=== PATIENT | female | born 1985 | race Caucasian/White ===

== ENCOUNTER → 2021-03-07 11:16 | Outpatient (BNVA) | payer MEDICAID, SELFPAY | PROVIDERS: Visit Provider Nurse Practitioner Family | DX: M21.612 Bunion of left foot (principal); L60.2 Onychogryphosis; L03.032 Cellulitis of left toe; G89.29 Other chronic pain | CPT/HCPCS: 73030; 73130 ==

== ENCOUNTER 2021-05-16 09:28 | Emergency (ER) | payer MEDICAID, SELFPAY ==
--- NOTE | 2021-05-16 09:58 | ED_ITS ---
Documented by User: BOB Gee 05/16/21 13:09 HPI - Nausea/Vomiting/Diarrhea General: Chief complaint: Nausea/Vomiting/Diarrhea Stated complaint: abdominal pain, n/v/d Time Seen by Provider: 05/16/21 09:33 Source: patient Mode of arrival: ambulatory Limitations: no limitations History of Present Illness: Patient is a 36-year-old female who presents to ED today along with her sister who is also being seen for identical symptoms. They are both being seen for nausea, vomiting, diarrhea, abdominal cramping. They state several members of their household have recently been ill with similar symptoms. She states illness lasted anywhere from 2 to 7 days. No fevers. She is not having any urinary complaints. No dizziness, lightheadedness, muscle fatigue/weakness/cramps. Patient does have a history of hepatitis C that she is currently receiving treatment for. Patient denies hematemesis, hematochezia or melena. MD elicited complaint: nausea, vomiting, diarrhea and abdominal pain Onset (ago): day(s) Description of diarrhea: watery Associated nausea: Yes Associated abdominal pain: Yes Location of pain: Diffuse Pain consistency: intermittent Severity: mild Quality: cramping Associated symtoms: Reports nausea; Denies chest pain, dizziness, dysuria, fatigue, fecal incontinence, headache(s) or malaise Review of Systems Const: Denies: fever(s), chills, body aches, fatigue or malaise Card: Denies: chest pain Resp: Denies: dyspnea GI: Reports: abdominal pain, nausea, vomiting, diarrhea and GI cramping; Denies: hematemesis, coffee ground emesis, fecal incontinence, hematochezia, melena or mucus in stool : Denies: flank pain, dysuria, hematuria or pelvic pain Musc: Denies: neck pain, back pain, extremity pain or joint pain Skin/Breast: Denies: rash Neuro: Denies: headache(s) or dizziness PFS ED PFSH: Social History Smoking and tobacco status: current every day smoker (1/2 ppd) cigarettes Packs smoked per day: 0.5 Physical Exam Const: COMMON NORMALS: no acute distress, average body habitus, patient oriented x3, no limitations, healthy appearing, alert and well nourished GENE [facility] APPEARANCE: cooperative ORIENTATION/CONSCIOUSNESS: Yes awake, Yes oriented to person, Yes oriented to place and Yes oriented to time Resp: COMMON NORMALS: normal respiratory effort and clear to auscultation bilaterally AUSCULTATION: clear to auscultation bilaterally Cardio: COMMON NORMALS: regular rate and regular rhythm RATE: regular rate RHYTHM: regular rhythm GI: COMMON NORMALS: Normal to inspection, nondistended, normoactive bowel sounds present, Soft to palpation, non-tender, No hepatosplenomegaly present and no masses AUSCULTATION: Yes normoactive bowel sounds PALPATION: Yes Soft to palpation and Yes No hepatosplenomegaly present : COMMON NORMALS: Yes no CVA tenderness BLADDER/KIDNEY EXAM: Yes no CVA tenderness Back/Pelvis: COMMON NORMALS: no CVA tenderness Extremity: COMMON NORMALS: normal to inspection GENERAL: Yes normal exam except as noted Neuro: GÉNESIS COMA SCALE: document GCS findings [place] coma scale eye opening: Spontaneous [place] coma scale verbal response: Orientated Génesis coma scale motor response: Obey commands Génesis coma scale total score: 15 COMMON NORMALS: patient oriented x3, moves all extremities, no focal motor deficits, no sensory deficits noted and gait normal SENSORIUM/ORIENTATION: Yes alert, Yes oriented to person, Yes oriented to place and Yes oriented to time Skin: COMMON NORMALS: no rashes or lesions noted GENERAL SKIN EXAM: no rashes or lesions noted Course Vital Signs: Vital signs: Vital Signs Temperature 97.8 F 05/16/21 10:54 Pulse Rate 64 05/16/21 10:54 Respiratory Rate 16 05/16/21 10:54 Blood Pressure 106/72 05/16/21 10:54 Pulse Oximetry 100 05/16/21 10:54 MDM - Nausea/Vomiting/Diarrhea Medical Decision Making Patient is a 36-year-old female here for complaints of nausea, vomiting, diarrhea, and intermittent abdominal cramping. Her sister has been seen here for identical symptoms. They state their entire household has been sick with a GI bug . Patient actually states she has felt much better over the past 48 hours. Her vital signs are stable. Clinically she appears in no acute distress. Blood work reveals leukopenia with a WBC count of 2.5 neutropenia count of 0.55. Patient seems to think she has had these abnormal lab values previously. I did contact her primary care provider and [facility] who stated on her most recent blood work in February her values were normal. They faxed over CBC results and I confirmed this. Patient was recently started on hepatitis C medication. PCP does not feel this would be a side effect of the medication. He recommended she continue taking this. He stated he will repeat labs in a few weeks and if they continue to be low will refer to hematology. Patient is afebrile. Strict return to ED precautions given which she verbalizes understanding of. Lab Data : 05/16/21 10:15 05/16/21 10:15 Laboratory Results WBC 2.5 10^3/uL (4.0-10.0) L 05/16/21 10:15 RBC 4.84 10^6/uL (4.1-5.3) 05/16/21 10:15 Hgb 15.1 g/dL (11.5-15.3) 05/16/21 10:15 Hct 44.5 % (37.0-47.0) 05/16/21 10:15 MCV 91.9 fl (81-99) 05/16/21 10:15 MCH 31.2 pg (28.0-34.0) 05/16/21 10:15 MCHC 33.9 g/dL (30.0-36.0) 05/16/21 10:15 RDW 11.7 % (12.1-15.1) L 05/16/21 10:15 Plt Count 194 10^3/cmm (130-400) 05/16/21 10:15 MPV 10.0 fL (7.4-10.4) 05/16/21 10:15 Neut % (Auto) 22.5 % 05/16/21 10:15 Lymph % (Auto) 62.4 % 05/16/21 10:15 [place] % (Auto) 13.1 % 05/16/21 10:15 Eos % (Auto) 1.2 % 05/16/21 10:15 Baso % (Auto) 0.4 % 05/16/21 10:15 Neut # (Auto) 0.55 10^3/uL (1.8-7.7) L* 05/16/21 10:15 Lymph # (Auto) 1.5 10^3/uL (0.8-4.8) 05/16/21 10:15 [place] # (Auto) 0.3 10^3/uL (0.2-0.9) 05/16/21 10:15 Eos # (Auto) 0.0 10^3/uL (0.0-0.8) 05/16/21 10:15 Baso # (Auto) 0.0 10^3/uL (0.0-0.1) 05/16/21 10:15 Nucleated RBC % (auto) 0 % 05/16/21 10:15 Nucleated RBCs # 0.0 /100WBC 05/16/21 10:15 Sodium 135 mmol/L (136-145) L 05/16/21 10:15 Potassium 3.5 mmol/L (3.5-5.1) 05/16/21 10:15 Chloride 100 mmol/L (98-107) 05/16/21 10:15 Carbon Dioxide 26 mmol/L (22-29) 05/16/21 10:15 Anion Gap 12.5 (5-19) 05/16/21 10:15 BUN 7 mg/dL (6-20) 05/16/21 10:15 Creatinine 0.6 mg/dL (0.5-0.9) 05/16/21 10:15 GFR Calculation 113.1 mL/min (90-130) 05/16/21 10:15 Glucose 77 mg/dL (65-115) 05/16/21 10:15 Calculated Osmolality 277 mOsm/kg (285-295) L 05/16/21 10:15 Calcium 9.0 mg/dL (8.5-10.5) 05/16/21 10:15 Total Bilirubin 0.5 mg/dL (0.15-1.2) 05/16/21 10:15 AST 47 U/L (0-32) H 05/16/21 10:15 ALT 61 U/L (0-33) H 05/16/21 10:15 Alkaline Phosphatase 86 IU/L (35-105) 05/16/21 10:15 Total Protein 6.6 g/dL (6.6-8.7) 05/16/21 10:15 Albumin 4.1 g/dL (3.5-5.2) 05/16/21 10:15 Globulin 2.5 g/dL (1.3-4.6) 05/16/21 10:15 Lipase 27 U/L (13-60) 05/16/21 10:15 HCG, Qual Negative (Negative) 05/16/21 10:15 Urine Color Yellow (Yellow) 05/16/21 10:30 Urine Appearance Clear (CLEAR) 05/16/21 10:30 Urine pH 5 (5-7) 05/16/21 10:30 Ur Specific [place] 1.010 (1.005-1.030) 05/16/21 10:30 Urine Protein Neg (Negative) 05/16/21 10:30 Urine Glucose (UA) Norm (Normal) 05/16/21 10:30 Urine Ketones Negative (Negative) 05/16/21 10:30 Urine Blood Neg (Negative) 05/16/21 10:30 Urine Nitrate Negative (Negative) 05/16/21 10:30 Urine Bilirubin Neg (Negative) 05/16/21 10:30 Urine Urobilinogen Neg mg/dL (Negative) 05/16/21 10:30 Ur Leukocyte Esterase Negative (Negative) 05/16/21 10:30 Discharge Plan Discharge Patient Disposition: Home Clinical Impression: Viral gastroenteritis Neutropenia Qualifiers: Neutropenia type: unspecified Qualified Code(s): D70.9 - Neutropenia, unspecified Condition: Stable Prescriptions: No Action methotrexate sodium 2.5 mg tablet 2.5 mg PO DAILY 0RF cephalexin 500 mg capsule 500 mg PO TID 10 Days Qty: 30 0RF Discharge Orders: Discharge ED (Routine); Ordered 05/16/21 Ordered By: Chloe Lr Activity Restrictions/Additional Instructions: As we discussed I spoke to your primary care provider. He will repeat labs in a few weeks. If your white cell count/neutrophil count remains low he will most likely refer you to hematology for further evaluation. He stated you can still continue your current hep C regimen. Coding Level of Care Code ED [place] for Chg Fwd Exam Comprehensive Documented by User: Jean Sun DO 05/16/21 13:47 HPI - Nausea/Vomiting/Diarrhea General: Chief complaint: Nausea/Vomiting/Diarrhea Stated complaint: abdominal pain, n/v/d Time Seen by Provider: 05/16/21 09:33 PFSH ED PFSH: Social History Smoking and tobacco status: current every day smoker (1/2 ppd) cigarettes Packs smoked per day: 0.5 Physical Exam Neuro: GÉNESIS COMA SCALE: document GCS findings Génesis coma scale total score: 15 Course Vital Signs: Vital signs: Vital Signs Temperature 97.8 F 05/16/21 10:54 Pulse Rate 64 05/16/21 10:54 Respiratory Rate 16 05/16/21 10:54 Blood Pressure 106/72 05/16/21 10:54 Pulse Oximetry 100 05/16/21 10:54 MDM - Nausea/Vomiting/Diarrhea Medical Decision Making Patient is a 36-year-old female here for complaints of nausea, vomiting, diarrhea, and intermittent abdominal cramping. Her sister has been seen here for identical symptoms. They state their entire household has been sick with a GI bug . Patient actually states she has felt much better over the past 48 hours. Her vital signs are stable. Clinically she appears in no acute distress. Blood work reveals leukopenia with a WBC count of 2.5 neutropenia count of 0.55. Patient seems to think she has had these abnormal lab values previously. I did contact her primary care provider and [facility] who stated on her most recent blood work in February her values were normal. They faxed over CBC results and I confirmed this. Patient was recently started on hepatitis C medication. PCP does not feel this would be a side effect of the medication. He recommended she continue taking this. He stated he will repeat labs in a few weeks and if they continue to be low will refer to hematology. Patient is afebrile. Strict return to ED precautions given which she verbalizes understanding of. Chart reviewed and patient discussed with midlevel. Agree with assessment and plan. Lab Data : 05/16/21 10:15 05/16/21 10:15 Laboratory Results WBC 2.5 10^3/uL (4.0-10.0) L 05/16/21 10:15 RBC 4.84 10^6/uL (4.1-5.3) 05/16/21 10:15 Hgb 15.1 g/dL (11.5-15.3) 05/16/21 10:15 Hct 44.5 % (37.0-47.0) 05/16/21 10:15 MCV 91.9 fl (81-99) 05/16/21 10:15 MCH 31.2 pg (28.0-34.0) 05/16/21 10:15 MCHC 33.9 g/dL (30.0-36.0) 05/16/21 10:15 RDW 11.7 % (12.1-15.1) L 05/16/21 10:15 Plt Count 194 10^3/cmm (130-400) 05/16/21 10:15 MPV 10.0 fL (7.4-10.4) 05/16/21 10:15 Neut % (Auto) 22.5 % 05/16/21 10:15 Lymph % (Auto) 62.4 % 05/16/21 10:15 [place] % (Auto) 13.1 % 05/16/21 10:15 Eos % (Auto) 1.2 % 05/16/21 10:15 Baso % (Auto) 0.4 % 05/16/21 10:15 Neut # (Auto) 0.55 10^3/uL (1.8-7.7) L* 05/16/21 10:15 Lymph # (Auto) 1.5 10^3/uL (0.8-4.8) 05/16/21 10:15 [place] # (Auto) 0.3 10^3/uL (0.2-0.9) 05/16/21 10:15 Eos # (Auto) 0.0 10^3/uL (0.0-0.8) 05/16/21 10:15 Baso # (Auto) 0.0 10^3/uL (0.0-0.1) 05/16/21 10:15 Nucleated RBC % (auto) 0 % 05/16/21 10:15 Nucleated RBCs # 0.0 /100WBC 05/16/21 10:15 Sodium 135 mmol/L (136-145) L 05/16/21 10:15 Potassium 3.5 mmol/L (3.5-5.1) 05/16/21 10:15 Chloride 100 mmol/L (98-107) 05/16/21 10:15 Carbon Dioxide 26 mmol/L (22-29) 05/16/21 10:15 Anion Gap 12.5 (5-19) 05/16/21 10:15 BUN 7 mg/dL (6-20) 05/16/21 10:15 Creatinine 0.6 mg/dL (0.5-0.9) 05/16/21 10:15 GFR Calculation 113.1 mL/min (90-130) 05/16/21 10:15 Glucose 77 mg/dL (65-115) 05/16/21 10:15 Calculated Osmolality 277 mOsm/kg (285-295) L 05/16/21 10:15 Calcium 9.0 mg/dL (8.5-10.5) 05/16/21 10:15 Total Bilirubin 0.5 mg/dL (0.15-1.2) 05/16/21 10:15 AST 47 U/L (0-32) H 05/16/21 10:15 ALT 61 U/L (0-33) H 05/16/21 10:15 Alkaline Phosphatase 86 IU/L (35-105) 05/16/21 10:15 Total Protein 6.6 g/dL (6.6-8.7) 05/16/21 10:15 Albumin 4.1 g/dL (3.5-5.2) 05/16/21 10:15 Globulin 2.5 g/dL (1.3-4.6) 05/16/21 10:15 Lipase 27 U/L (13-60) 05/16/21 10:15 HCG, Qual Negative (Negative) 05/16/21 10:15 Urine Color Yellow (Yellow) 05/16/21 10:30 Urine Appearance Clear (CLEAR) 05/16/21 10:30 Urine pH 5 (5-7) 05/16/21 10:30 Ur Specific [place] 1.010 (1.005-1.030) 05/16/21 10:30 Urine Protein Neg (Negative) 05/16/21 10:30 Urine Glucose (UA) Norm (Normal) 05/16/21 10:30 Urine Ketones Negative (Negative) 05/16/21 10:30 Urine Blood Neg (Negative) 05/16/21 10:30 Urine Nitrate Negative (Negative) 05/16/21 10:30 Urine Bilirubin Neg (Negative) 05/16/21 10:30 Urine Urobilinogen Neg mg/dL (Negative) 05/16/21 10:30 Ur Leukocyte Esterase Negative (Negative) 05/16/21 10:30 Discharge Plan Discharge Patient Disposition: Home Clinical Impression: Viral gastroenteritis Neutropenia Qualifiers: Neutropenia type: unspecified Qualified Code(s): D70.9 - Neutropenia, unspecified Condition: Stable Prescriptions: No Action methotrexate sodium 2.5 mg tablet 2.5 mg PO DAILY 0RF cephalexin 500 mg capsule 500 mg PO TID 10 Days Qty: 30 0RF Discharge Orders: Discharge ED (Routine); Ordered 05/16/21 Ordered By: Chloe Lr Activity Restrictions/Additional Instructions: As we discussed I spoke to your primary care provider. He will repeat labs in a few weeks. If your white cell count/neutrophil count remains low he will most likely refer you to hematology for further evaluation. He stated you can still continue your current hep C regimen. Coding Level of Care Code ED [place] for [place] Fwd Exam Comprehensive
[2021-05-16 10:33] LABS: Basophils % 0.4 %; Eosinophils % 1.2 %; Hematocrit 44.5 % (37.0-47.0); Hemoglobin 15.1 g/dL (11.5-15.3); Lymphocytes # 1.5 10^3/uL (0.8-4.8); Lymphocytes % 62.4 %; Mean Corpuscular HGB Conc 33.9 g/dL (30.0-36.0); Mean Corpuscular Hemoglobin 31.2 pg (28.0-34.0); Mean Corpuscular Volume 91.9 fl (81-99); Monocytes # 0.3 10^3/uL (0.2-0.9); Monocytes % 13.1 %; Neutrophils % 22.5 %; Nucleated Red Blood Cells % 0 %; Platelet Count 194 10^3/cmm (130-400); Red Blood Count 4.84 10^6/uL (4.1-5.3); Red Cell Distribution Width 11.7 % (12.1-15.1); White Blood Count 2.5 10^3/uL (4.0-10.0)
[2021-05-16 10:39] LABS: Add Urine Microscopic? NO; Charge for UA Resulting for Rev
[2021-05-16 10:40] LABS: Neutrophils # 0.55 10^3/uL (1.8-7.7)
[2021-05-16 10:44] LABS: Bilirubin Urine Neg (Negative); Blood Urine Neg (Negative); Glucose Urine UA Norm (Normal); Ketones Urine Negative (Negative); Leukocyte Esterase Urine Negative (Negative); Nitrate Urine Negative (Negative); Protein Urine Neg (Negative); Urine Appearance Clear (CLEAR); Urine Color Yellow (Yellow); Urobilinogen Urine Neg (Negative); pH Urine 5 (5-7)
[2021-05-16 10:52] LABS: HCG, Serum Qual Negative (Negative)
[2021-05-16 10:54] VITALS: BP 106/72; PULSE 64; RESP 16; TEMP 36.6; O2SAT 100
[2021-05-16 11:06] LABS: Alanine Aminotransferase 61 U/L (0-33); Albumin Level 4.1 g/dL (3.5-5.2); Alkaline Phosphatase 86 IU/L (35-105); Anion Gap 12.5 (5-19); Aspartate Amino Transferase 47 U/L (0-32); Blood Urea Nitrogen 7 mg/dL (6-20); Carbon Dioxide 26 mmol/L (22-29); Chloride 100 mmol/L (98-107); Globulin 2.5 g/dL (1.3-4.6); Glomerular Filtration Rate 113.1 mL/min (90-130); Glucose 77 mg/dL (65-115); Lipase 27 U/L (13-60); Osmolality Calculated 277 mOsm/kg (285-295); Potassium 3.5 mmol/L (3.5-5.1); Sodium 135 mmol/L (136-145); Total Bilirubin 0.5 mg/dL (0.15-1.2); Total Protein 6.6 g/dL (6.6-8.7)
== END 2021-05-16 12:15 | disposition home or self-care (01) ==
PROVIDERS: Family Medicine; Emergency Provider Physician Assistant
DX: A08.4 Viral intestinal infection, unspecified (principal); D70.9 Neutropenia, unspecified; B19.20 Unspecified viral hepatitis C without hepatic coma; F17.210 Nicotine dependence, cigarettes, uncomplicated
CPT/HCPCS: 80053; 81003; 83690; 84703; 85025; 99281